=== PATIENT | female | born 2000 | race African-American/Black ===

== ENCOUNTER 2023-06-17 15:42 | Emergency (ER) | payer OTHER ==
[~2023-06-17] VITALS: Ht 175.3 cm; Wt 77.3 kg
[2023-06-17 15:49] VITALS: BP 112/55; PULSE 82; RESP 16; TEMP 99
[2023-06-17] MEDS ORDERED: GABA-1181 PO (15:57)
[2023-06-17] MEDS ORDERED: TRAZ150T80 PO (15:57)
[2023-06-17] MEDS ORDERED: LITH300T PO (15:57)
[2023-06-17] MEDS ORDERED: DULO-114 PO (15:57)
[2023-06-17] MEDS ORDERED: PROP10TA73 PO (15:57)
[2023-06-17] MEDS ORDERED: OLAN5TAB52 PO (15:57)
[2023-06-17] MEDS ORDERED: GABA-1216 PO (15:57)
[2023-06-17 16:06] LABS: APPEARANCE,URINE HAZY (CLEAR); BILIRUBIN,URINE NEGATIVE (NEGATIVE); COLOR,URINE LIGHT YELLOW (YELLOW); GLUCOSE, URINE (UA) NEGATIVE (NEGATIVE); KETONES,URINE NEGATIVE (NEGATIVE); LEUKOCYTE ESTERASE ,URINE LARGE (NEGATIVE); NITRATE,URINE NEGATIVE (NEGATIVE); OCCULT BLOOD,URINE LARGE (NEGATIVE); PROTEIN,URINE TRACE mg/dL (NEGATIVE); SPECIFIC GRAVITIY, URINE 1.005 (1.003-1.030); UROBILINOGEN,URINE <=1.0 mg/dL (<=1.0)
[2023-06-17 16:13] LABS: HCG,QUAL URINE NEGATIVE (NEGATIVE)
[2023-06-17 16:22] LABS: WBC,URINE 51-100 /HPF (0-5)
[2023-06-17 16:23] LABS: BACTERIA,URINE Few /HPF (None Seen)
[2023-06-17] MEDS: CefTRIAXone SODIUM 1 GM/VIAL IM ONE (18:30)
[2023-06-17] MEDS: AZITHROMYCIN 500 MG TABLET PO ONE (18:30)
[2023-06-17] MEDS: LIDOCAINE/PF 1% 2 ML VIAL IM ONE (18:30)
[2023-06-17] MEDS ORDERED: SULF-261 PO (19:12)
== END 2023-06-17 19:16 | disposition home or self-care (01) ==
LOC: EMS 15:43
DX: N39.0 Urinary tract infection, site not specified (principal); F31.9 Bipolar disorder, unspecified
CPT/HCPCS: 99283; 81001; 84703; 87086; 87186; 96372; J0696; J3490; Q9967

== ENCOUNTER 2024-12-19 09:32 | Emergency (ER) | payer OTHER ==
[~2024-12-19] VITALS: Ht 162.6 cm; Wt 90.9 kg
[~2024-12-19 09:32] MED LIST: DULO30CA62 PO; GABA-1181 PO; LITH300T PO; OLAN5TAB52 PO; PROP10TA73 PO; SULF-261 PO; TRAZ150T80 PO
[2024-12-19 09:39] VITALS: TEMP 97.9
[2024-12-19 09:55] LABS: COVID AG,FIA SOURCE NASAL SWAB
[2024-12-19 11:23] LABS: INFLUENZA TYPE A NEGATIVE FOR TYPE A (NEGATIVE); INFLUENZA TYPE B NEGATIVE FOR TYPE B (NEGATIVE); SARS-COV2 (COVID) ANTIGEN,FIA Negative (Negative)
[2024-12-19 12:28] LABS: PLATELET COUNT (AUTO) 292 K/uL (150-450); RED BLOOD CELL COUNT(AUTO) 5.03 MIL/uL (4.00-5.20); RED CELL DISTRIBUTION WIDTH 13.9 % (11.5-14.5); WHITE BLOOD COUNT (AUTO) 4.9 K/uL (4.5-11.0)
[2024-12-19 12:44] LABS: CALCIUM, TOTAL 9.0 mg/dL (8.8-10.5); CREATININE 1.18 mg/dL (0.60-1.30); GLOMERULAR FILTR. RATE CALC > 60 mL/min (>60); GLUCOSE,RANDOM 130 mg/dL (70-110); SODIUM SERUM 140 mmol/L (136-145); UREA NITROGEN, BLOOD 12 mg/dL (7-18)
[2024-12-19 12:48] LABS: ASPARTATE AMINOTRANSFERASE 70 U/L (15-37); HCG,QUANTITATIVE < 1 mIU/mL (0-6); TOTAL PROTEIN, SERUM 8.1 g/dL (6.4-8.2)
[2024-12-19] MEDS ORDERED: IOHEXOL 350 MG/ML 100 ML VIAL ONE (13:15)
[2024-12-19] MEDS ORDERED: SODIUM CHLORIDE 0.9% 100 ML ONE (13:16)
[2024-12-19 13:24] LABS: APPEARANCE,URINE HAZY (CLEAR); GLUCOSE, URINE (UA) NEGATIVE (NEGATIVE); LEUKOCYTE ESTERASE ,URINE NEGATIVE (NEGATIVE); NITRATE,URINE NEGATIVE (NEGATIVE); OCCULT BLOOD,URINE NEGATIVE (NEGATIVE); SPECIFIC GRAVITIY, URINE 1.035 (1.003-1.030)
[2024-12-19 14:17] LABS: LACTIC ACID 1.9 mmol/L (0.4-2.0)
[2024-12-19 14:35] LABS: ALCOHOL, BLOOD (SERUM) < 3 mg/dL (0-10)
[2024-12-19] MEDS: SODIUM CHLORIDE 0.9% 1,000 ML IV ONE ×2 (15:02→15:40)
[2024-12-19] MEDS: FAMOTIDINE 20 MG/2 ML VIAL IVP ONE (15:03)
[2024-12-19] MEDS: KETOROLAC TROMETHAMINE 30 MG/ML VIAL IVP ONE (15:03)
[2024-12-19] MEDS: ONDANSETRON HCL 4 MG/2 ML VIAL IVP ONE (15:03)
[2024-12-19] MEDS: POTASSIUM CHLORIDE 20 MEQ ER TABLET PO ONE (15:40)
[2024-12-19] MEDS: POTASSIUM CHL 10 MEQ/WATER 50 ML IV ONE (15:40)
[2024-12-19 17:38] LABS: CALCIUM, TOTAL 7.6 mg/dL (8.8-10.5); CREATININE 1.11 mg/dL (0.60-1.30); GLOMERULAR FILTR. RATE CALC > 60 mL/min (>60); GLUCOSE,RANDOM 118 mg/dL (70-110); SODIUM SERUM 141 mmol/L (136-145); UREA NITROGEN, BLOOD 10 mg/dL (7-18)
[2024-12-19 18:00] VITALS: BP 120/84; PULSE 85; RESP 18; O2SAT 100
[2024-12-19] MEDS ORDERED: ONDA-104 PO (18:11)
== END 2024-12-19 18:28 | disposition home or self-care (01) ==
LOC: EMS 09:35
DX: K52.9 Noninfective gastroenteritis and colitis, unspecified (principal); J45.909 Unspecified asthma, uncomplicated; M06.9 Rheumatoid arthritis, unspecified; F17.210 Nicotine dependence, cigarettes, uncomplicated; Z79.899 Other long term (current) drug therapy; Z20.822 Contact with and (suspected) exposure to COVID-19
CPT/HCPCS: 99285; 74177; 96365; 96375; 96361; 87426; 80053; 83605; 83690; 83735; 84702; 85025; 87804; 81003; 80048; 36415; J1885; G0480; Q9967; J3490; J2405; J3480; J7030; J7050